=== PATIENT | male | born 1995 | race Caucasian/White ===

== ENCOUNTER 2018-11-02 11:45 | Emergency (ER) | payer MEDICAID, OTHER ==
[~2018-11-02] VITALS: Ht 165.1 cm; Wt 46.0 kg
[~2018-11-02 11:45] MED LIST: ANTIBIOTICS; COM10T PO; IBUP-1984 PO; LACT10SO PO; NO HOME MEDS; PANT40TA39 PO
[2018-11-02 12:01] VITALS: BP 121/72
== END 2018-11-02 13:01 | disposition home or self-care (01) ==
LOC: ER 11:46
DX: J06.9 Acute upper respiratory infection, unspecified (principal); Z79.899 Other long term (current) drug therapy
CPT/HCPCS: 99281

== ENCOUNTER 2019-01-01 16:37 | Emergency (ER) | payer MEDICAID, OTHER ==
[~2019-01-01] VITALS: Ht 167.6 cm; Wt 46.4 kg
[2019-01-01] MEDS ORDERED: NAPR-996 PO (18:52)
[2019-01-01 19:03] VITALS: BP 93/52
== END 2019-01-01 19:04 | disposition home or self-care (01) ==
LOC: ER 16:38
DX: S93.691A Other sprain of right foot, initial encounter (principal); W10.8XXA Fall (on) (from) other stairs and steps, initial encounter; Y93.89 Activity, other specified; Y92.89 Other specified places as the place of occurrence of the external cause; Y99.8 Other external cause status
CPT/HCPCS: 73610; 99283

== ENCOUNTER 2022-12-18 19:00 | Emergency (ER) | payer MEDICAID ==
[~2022-12-18] VITALS: Ht 165.1 cm; Wt 46.4 kg
[~2022-12-18 19:00] MED LIST changes: -LACT10SO PO; +LACT10SO3 PO; +NAPR-996 PO
[2022-12-18 19:16] VITALS: BP 101/60
== END 2022-12-18 20:30 | disposition home or self-care (01) ==
LOC: ER 19:00
DX: D17.24 Benign lipomatous neoplasm of skin and subcutaneous tissue of left leg (principal); Z79.899 Other long term (current) drug therapy
CPT/HCPCS: 99281

== ENCOUNTER 2024-02-21 22:09 | Emergency (ER) | payer MEDICAID ==
[~2024-02-21] VITALS: Ht 167.6 cm; Wt 46.1 kg
[2024-02-21] MEDS ORDERED: CYCL-1 PO (22:35)
[2024-02-21] MEDS ORDERED: NAPR-56 PO (22:35)
[2024-02-21] MEDS: diazepam inj 5 MG/ML inj. IM ONE (22:45)
[2024-02-21] MEDS: ketorolac tromethamine 15mg/ml inj. IM ONE (22:45)
[2024-02-21 22:49] VITALS: BP 118/64; PULSE 87; RESP 18; TEMP 98.4; O2SAT 99
== END 2024-02-21 22:52 | disposition home or self-care (01) ==
LOC: ER 22:10
DX: S16.1XXA Strain of muscle, fascia and tendon at neck level, initial encounter (principal); Z79.1 Long term (current) use of non-steroidal anti-inflammatories (NSAID); Z79.899 Other long term (current) drug therapy; X58.XXXA Exposure to other specified factors, initial encounter; Y93.89 Activity, other specified; Y92.89 Other specified places as the place of occurrence of the external cause; Y99.8 Other external cause status
CPT/HCPCS: 96372; 99284; J1885; J3360